=== PATIENT | female | born 1980 | race Asian ===

== ENCOUNTER 2020-07-28 10:28 | Day surgery (SDC) | payer OTHER, SELFPAY ==
[~2020-07-28] VITALS: Ht 162.6 cm; Wt 70.3 kg
[2020-07-28] MEDS ORDERED: LIDOCAINE 2% 100 MG/5 ML UJET TP ONE ×2 (12:21→14:35)
[2020-07-28] MEDS ORDERED: MIDAZOLAM 2 MG/2 ML VIAL ONE (12:21)
[2020-07-28] MEDS ORDERED: fentaNYL citrate 0.05 MG/ML VIAL ONE (12:21)
[2020-07-28] MEDS ORDERED: fentaNYL citrate 0.05 MG/ML VIAL IM ONE (14:25)
[2020-07-28] MEDS ORDERED: MIDAZOLAM 2 MG/2 ML VIAL IVP ONE (14:25)
[2020-07-28] MEDS ORDERED: fentaNYL citrate 0.05 MG/ML VIAL IVP ONE (14:35)
== END 2020-07-28 13:50 | disposition home or self-care (01) ==
LOC: MDS 10:28 → MMU 11:11 → MDS 13:50
PROVIDERS: ATTEND Internal Medicine Gastroenterology
DX: K62.5 Hemorrhage of anus and rectum (principal); K62.1 Rectal polyp; K64.8 Other hemorrhoids; Z20.828 Contact with and (suspected) exposure to other viral communicable diseases; Z98.51 Tubal ligation status; K59.00 Constipation, unspecified
CPT/HCPCS: 45385; 81025; 88305; J2250; J3010; U0003

== ENCOUNTER 2021-01-17 06:28 | Day surgery (SDC) | payer OTHER, SELFPAY ==
[~2021-01-17] VITALS: Ht 162.6 cm; Wt 71.2 kg
[2021-01-17] MEDS ORDERED: LIDOCAINE 1% 500 MG/50 ML VIAL ONE (07:14)
[2021-01-17] MEDS ORDERED: BUPIVACAINE-MPF 0.25% 30 ML VIAL INJ ONE (07:14)
[2021-01-17] MEDS ORDERED: NEOSTIGMINE 1:1000 10 MG/10 ML VIAL ONE (07:41)
[2021-01-17] MEDS ORDERED: LIDOCAINE 2% 100 MG/5 ML SYR IVP ONE (07:41)
[2021-01-17] MEDS ORDERED: SEVOFLURANE 250 ML BTL INH ONE (07:41)
[2021-01-17] MEDS ORDERED: KETOROLAC 30 MG/ML VIAL ONE (07:41)
[2021-01-17] MEDS ORDERED: fentaNYL citrate 0.05 MG/ML VIAL ONE (07:41)
[2021-01-17] MEDS ORDERED: ROCURONIUM 50 MG/5 ML VIAL IV ONE (07:41)
[2021-01-17] MEDS ORDERED: GLYCOPYRROLATE 0.2 MG/ML VIAL ONE (07:41)
[2021-01-17] MEDS ORDERED: PROPOFOL 200 MG/20 ML VIAL IV ONE (07:41)
[2021-01-17] MEDS ORDERED: METOCLOPRAMIDE 10 MG/2 ML INJ VIAL ONE (07:41)
[2021-01-17] MEDS ORDERED: SUCCINYLCHOLINE CHLORIDE 200 MG/10 ML VIAL IVP ONE (07:41)
[2021-01-17] MEDS ORDERED: ONDANSETRON 4 MG/2 ML VIAL ONE (07:41)
[2021-01-17] MEDS ORDERED: DEXAMETHASONE 4 MG/ML VIAL ONE (07:41)
[2021-01-17] MEDS ORDERED: diphenhydrAMINE 50 MG/ML VIAL IVP PRN (08:15)
[2021-01-17] MEDS ORDERED: LACTATED RINGERS 1,000 ML IV SCH (08:15)
[2021-01-17] MEDS ORDERED: ONDANSETRON 4 MG/2 ML VIAL IVP PRN (08:15)
[2021-01-17] MEDS ORDERED: MEPERIDINE 25 MG/ML SYR IVP PRN (08:15)
[2021-01-17] MEDS ORDERED: HYDROcodone/APAP 5/325 MG 1 TAB TAB PO PRN (08:15)
[2021-01-17] MEDS: fentaNYL citrate 0.05 MG/ML VIAL IVP PRN ×2 (08:46→08:56)
--- NOTE | 2021-01-17 10:34 | NUR ---
PATIENT HAS BEEN SCREENED AND CATEGORIZED LOW NUTRITION RISK. PATIENT WILL BE SEEN WITHIN 7 DAYS OF ADMISSION. 01/22/[address]
== END 2021-01-17 10:10 | disposition home or self-care (01) ==
LOC: MMU 06:28 → MDS 06:28
PROVIDERS: ATTEND Surgery
DX: K64.4 Residual hemorrhoidal skin tags (principal); K64.1 Second degree hemorrhoids; D64.9 Anemia, unspecified; Z20.828 Contact with and (suspected) exposure to other viral communicable diseases
CPT/HCPCS: 46260; 71045; J2001; J3010; J3490; U0003; 88304; J0330; J1100; J1885; J2405; J2704; J2710; J2765